=== PATIENT | female | born 1955 | race Caucasian/White ===

== ENCOUNTER 2016-11-17 06:55 | Day surgery (SDC) | payer OTHER ==
--- NOTE | ~2016-11-17 | EGD ---
EGD REPORT [facility] [address] [place]. [address] NAME: CHANELL BROWN : 57 STATUS : [facility] [place] PAT#: [id number] AGE: 61 ADM/REG DATE : 11/17/16 MR#: [id number] REPORT SERV DATE: 11/17/16 DICTATED BY: DEJA ABRAHAM DATE: 11/17/16 REPORT STATUS : Draft TRANSCRIBED BY: [facility] DATE: 11/17/16 End[facility] Center Patient Name: Chanell Brown Date of : 1955 Attending MD: DEJA ABRAHAM MD Procedure Date No Time: 11/17/2016 Procedure: Colonoscopy Indications: Heme positive stool, Last colonoscopy: February 2009, History of ischemic colitis Referring MD: ELMIRA SADLER MD Medicines: Propofol per Anesthesia Complications: No immediate complications. Estimated blood loss: None. Procedure: Pre-Anesthesia Assessment: - After reviewing the risks and benefits, the patient was deemed in satisfactory condition to undergo the procedure. - Prior to the procedure, a History and Physical was performed, and patient medications and allergies were reviewed. The patient's tolerance of previous anesthesia was also reviewed. The risks and benefits of the procedure and the sedation options and risks were discussed with the patient. All questions were answered, and informed consent was obtained. Prior Anticoagulants: The patient has taken Plavix (clopidogrel), last dose was 7 days prior to procedure. ASA Grade Assessment: III - A patient with severe systemic disease. After reviewing the risks and benefits, the patient was deemed in satisfactory condition to undergo the procedure. After I obtained informed consent, the scope was passed under direct vision. Throughout the procedure, the patient's blood pressure, pulse, and oxygen saturations were monitored continuously. The CF [id number] was introduced through the anus and advanced to the cecum, identified by appendiceal orifice and ileocecal valve. The colonoscopy was performed without difficulty. The ileocecal valve and appendiceal orifice were photographed. The patient tolerated the procedure well. The quality of the bowel preparation was adequate. The bowel preparation used was SUPREP. Scope withdrawal time was greater than 6 minutes. Findings: The perianal and digital rectal examinations were normal. Pertinent negatives include normal sphincter tone. Non-bleeding internal hemorrhoids were found during retroflexion and EGD REPORT [address] [address] NAME: CHANELL BROWN : [birth year] STATUS : REG [facility]#: [id number] AGE: 61 ADM/REG DATE : 11/17/16 MR#: [id number] REPORT SERV DATE: 11/17/16 DICTATED BY: DEJA ABRAHAM DATE: 11/17/16 REPORT STATUS : Draft TRANSCRIBED BY: [facility] DATE: 11/17/16 were medium-sized and Grade I (internal hemorrhoids that do not prolapse). A single large-mouthed diverticulum was found in the proximal ascending colon. There was no evidence of diverticular bleeding. A sessile polyp was found in the transverse colon. The polyp was 4 mm in size. The polyp was removed with a cold snare. Resection and retrieval were complete. Estimated blood loss: none. The exam was otherwise without abnormality. Impression: - Non-bleeding internal hemorrhoids. - Diverticulosis in the proximal ascending colon. There was no evidence of diverticular bleeding. - One 4 mm polyp in the transverse colon. Resected and retrieved. - The examination was otherwise normal. Recommendation: - Discharge patient to home (ambulatory). - High fiber diet indefinitely. - Continue present medications. - Resume Plavix (clopidogrel) at prior dose tomorrow. - Await pathology results. - Repeat colonoscopy in 5 years for surveillance. - Patient has a contact number available for emergencies. The signs and symptoms of potential delayed complications were discussed with the patient. Return to normal activities tomorrow. Written discharge instructions were provided to the patient. Procedure Code(s): --- Professional --- 91103, Colonoscopy, flexible, proximal to splenic flexure; with removal of tumor(s), polyp(s), or other lesion(s) by snare technique Diagnosis Code(s): --- Professional --- K64.0, First degree hemorrhoids K57.30, Diverticulosis of large intestine without perforation or abscess without bleeding D12.3, Benign neoplasm of transverse colon R19.5, Other fecal abnormalities CPT copyright 2013 [employer]. All rights reserved. The codes documented in this report are preliminary and upon stone grader review may be revised to meet current compliance requirements. EGD REPORT [facility] [address] [place]. [address] NAME: CHANELL BROWN : [birth year] STATUS : [facility] [place] [facility] PAT#: [id number] AGE: 61 ADM/REG DATE : 11/17/16 MR#: [id number] REPORT SERV DATE: 11/17/16 DICTATED BY: DEJA ABRAHAM DATE: 11/17/16 REPORT STATUS : Draft TRANSCRIBED BY: [employer] DATE: 11/17/16 DEJA ABRAHAM MD 11/17/2016 9:06 AM This report has been signed electronically. Number of Addenda: 0 Note Initiated On: 11/17/2016 8:37 AM Scope Withdrawal Time 0 hours 6 minutes 20 seconds [address] [place] [address]
[~2016-11-17 06:55] MED LIST: ADVAIR250 INH; ASAB PO; ATV.5 PO; AVAP150 PO; BUSPAR5 PO; COMBIVENT INH; COMBIVENT RESPIM4 GM INH; DEPAKOTEER PO; LEVOTHYROXIN50 MCG PO; LIPITOR20 PO; LOP25 PO; NEUR300 PO; PLAVIX PO; POLY-IRON; PREDNISONE; PRIN10 PO; SYMBICORT 80/4.1 INH INH; VERAPAMIL ER; VERELAN180 MG PO; WELLXL150 PO; ZITH250 PO
== END 2016-11-17 23:59 | disposition home or self-care (01) ==
LOC: DMU 06:55
PROVIDERS: Internal Medicine Gastroenterology
PROC: 0DBL8ZZ Excision of Transverse Colon, Via Natural or Artificial Opening Endoscopic (ICD-10-PCS; principal; 2016-11-17 08:30)
DX: D12.3 Benign neoplasm of transverse colon (principal); K64.0 First degree hemorrhoids; K57.30 Diverticulosis of large intestine without perforation or abscess without bleeding; R19.5 Other fecal abnormalities; I25.10 Atherosclerotic heart disease of native coronary artery without angina pectoris; E03.9 Hypothyroidism, unspecified; E66.9 Obesity, unspecified; J44.9 Chronic obstructive pulmonary disease, unspecified; G47.33 Obstructive sleep apnea (adult) (pediatric); Z99.81 Dependence on supplemental oxygen; Z86.73 Personal history of transient ischemic attack (TIA), and cerebral infarction without residual deficits; Z79.899 Other long term (current) drug therapy; Z79.82 Long term (current) use of aspirin; Z98.890 Other specified postprocedural states; F41.9 Anxiety disorder, unspecified; F32.9 Major depressive disorder, single episode, unspecified; Z90.49 Acquired absence of other specified parts of digestive tract; Z90.89 Acquired absence of other organs; I11.0 Hypertensive heart disease with heart failure; I50.20 Unspecified systolic (congestive) heart failure; F17.210 Nicotine dependence, cigarettes, uncomplicated
CPT/HCPCS: 88305; 94640

== ENCOUNTER 2016-12-15 22:53 | Inpatient (IN) | payer OTHER ==
--- NOTE | ~2016-12-15 | DS ---
Discharge Summary [facility] [address] [place]. [address] NAME: CHANELL SHUKLA : 57 STATUS : ADM [facility] PAT#: [id number] AGE: 61 ADM/REG DATE : 12/15/16 MR#: [id number] REPORT SERV DATE: 12/18/16 DICTATED BY: BRONSON CHOI DATE: 12/18/16 REPORT STATUS : Draft TRANSCRIBED BY: MODL DATE: 12/18/16 ADMISSION DATE: 12/15/2016 DISCHARGE DATE: 12/18/2016 FINAL HOSPITAL DIAGNOSES: 1. Encephalopathy, confusion, and lethargy, felt secondary to history of EtOH and medication use. 2. History of seizure disorder. 3. History of chronic obstructive pulmonary disease. 4. History of obstructive sleep apnea. 5. History of systolic congestive heart failure. 6. History of hypothyroidism. 7. Hypertension. CONSULTATIONS: Dr. Read, Psychiatry. PROCEDURES: 1. Electroencephalogram done on 12/16/2016 showing normal awake electroencephalogram, somewhat compromised by movement artifact. Beta activity may be a normal variant or drug effect. If seizures are strongly suspected, repeat tracing with sleep deprivation may be considered. 2. CT of the brain done on 12/15/2016 showing atrophy. No acute infarct or bleed. CURRENT PHYSICAL FINDINGS AND HISTORY OF PRESENT ILLNESS: Please see dictated H and P by Dr. Gordon. In brief, the patient is a 61-year-old female with above medical history, presented with confusion and lethargy, felt secondary to history of EtOH and medication use at home. Vital signs at time of presentation, BP was 218/84, however, subsequent blood pressures were in the mid 150 range systolic. No fever at admission or during her hospital stay. Heart rates were consistently in the 60s to 70s. Sats were in mid 90s on room air. Lab work, presenting BMP showed some hyponatremia of 126. Subsequently through her hospital stay, she partially corrected to 133. BUN and creatinine were normal. Initial total bilirubin was 1.3, slightly elevated. AST and ALT were 60 and 48 respectively. Folate and B12 levels were checked with a folate of 5.3 and a B12 of 584. TSH was slightly high at 5.95, but no dosage adjustments to her chronic Synthroid were done. Depakote level was therapeutic at 92.2 and her alcohol level was less than 10. Her ammonia level was 28. Initially, her white count was 4.6 on presentation. H and H were stable at approximately 13 hemoglobin. Her platelet count was low on presentation at 79. She remained in mid 70s through her hospital stay. The only previous numbers available to us here were 160s back in 2013. INR was 1.4. Urinalysis was unremarkable. Urine chemistry was positive for benzodiazepines, otherwise unremarkable. HOSPITAL COURSE: The patient was admitted with above history and symptoms and was initially admitted by Dr. Gordon on the evening of 12/16/2016. I took over her care on the morning of 12/16/2016. The patient seemed to be improved at that time. Also, she had the availability Discharge Summary [address] [place]. [address] NAME: CHANELL SHUKLA : 57 STATUS : ADM [facility] PAT#: [id number] AGE: 61 ADM/REG DATE : 12/15/16 MR#: [id number] REPORT SERV DATE: 12/18/16 DICTATED BY: BRONSON CHOI DATE: 12/18/16 REPORT STATUS : Draft TRANSCRIBED BY: TREVIN DATE: 12/18/16 of her supportive and well-informed family members for additional history. The patient's last drink had been on 12/09/2016 prior to admission and family felt comfortable that that was accurate. She had apparently been placed on some benzodiazepines either for her anxiety or in anticipation of the drinking cessation. The patient did not really give a strong history of any DTs prior. Her sodium gradually corrected without intervention and it was not felt to be significantly contributory to her symptoms, and ammonia level was checked, which again was 28. It was elected to proceed with an EEG just to make sure that she did not have any occult seizures either from her chronic seizure history or the EtOH, although it had been almost a week since her last drink. This was not strongly positive. She was placed on her home medications. She did require initially some additional medication to titrate her blood pressure down, but otherwise did quite well. Because it was felt that she may be inadvertently taking her medications inappropriately either from the auto-refills from [employer] or during her alcohol use and it was also felt she may be using alcohol or medications to cope with her anxiety, Dr. Read did consult and recommended discontinuing her Wellbutrin and titrating her Ativan to a lowest dose if possible and continue her Lexapro. She did receive some Librium p.r.n. here for some anxiety, although there was again no true documented DT. She was never confused, disoriented, or combative. She had no significant difficulties with any bleeding complications. Her vitamin levels were checked and she was started on a multivitamin. She progressed well during her hospital stay without any other real issues or problems. The family was kept well informed and they are well involved in her care. Pending a PT evaluation today to make sure that she is stable and not a fall risk with her drinking history and recent situation. Pending the PT evaluation, she will be discharged later today. DISPOSITION: She will be discharged home. Family has already secured her a followup appointment with her PCP, Dr. Orona, tomorrow. MEDICATIONS: Baby aspirin 81, Lipitor 10, Plavix 75, Depakote 500 b.i.d., Lexapro 10, Synthroid 75 on Thursday and Thursday and 50 the remainder of the week, Prinivil 10, metoprolol 25 b.i.d., Aldactone 25, Combivent inhaler, Symbicort inhaler two puffs b.i.d. 80/4.5, vitamin D3 1000 daily, Ativan 0.5 at bedtime p.r.n., iron tablet and a multivitamin one per day. I did not adjust her Synthroid dose based on her TSH, we will defer to PCP. We will defer to PCP following of her platelet count. She was taken off any subcu DVT prophylaxis here when her platelet counts were noted and no baseline for followup. The patient will return for any complications or problems. At this point, she seems low probability for any withdrawals as she has been greater than a week from her last drink and her medications appear straightened out at this time. DICTATED BY: Imer Hanna/TREVIN Discharge Summary [place] [address] [place]. [address] NAME: CHANELL SHUKLA JUNIE : 57 STATUS : ADM [facility] PAT#: [id number] AGE: 61 ADM/REG DATE : 12/15/16 MR#: [id number] REPORT SERV DATE: 12/18/16 DICTATED BY: BRONSON CHOI DATE: 12/18/16 REPORT STATUS : Draft TRANSCRIBED BY: MODL DATE: 12/18/16 Bronson Choi M.D. / [id number] CC: Imer Hanna M.D.
--- NOTE | ~2016-12-15 | HP ---
History And Physical [place] [address] [facility] [place]. [address] NAME: CHANELL SHUKLA : 57 STATUS : ADM [facility] PAT#: [id number] AGE: 61 ADM/REG DATE : 12/15/16 MR#: [id number] REPORT SERV DATE: 12/16/16 DICTATED BY: MARCELA WEI DATE: 12/16/16 REPORT STATUS : Draft TRANSCRIBED BY: MODL DATE: 12/16/16 DATE OF ADMISSION: 12/15/2016 CHIEF COMPLAINT: A 61-year-old female presenting with chronic benzodiazepine use and now alcohol abuse with evidence of encephalopathy and lethargy. HISTORY OF PRESENTING ILLNESS: The patient's history was obtained through careful interview with the patient and two sisters, coupled with review of [facility]. Apparently for "a couple of weeks," the patient has become increasingly confused, disoriented, and lethargic, but yesterday, the day leading up to admission, her confusion had really hit a peak. The patient states "my head just does not feel right" and she has been incoherent, lethargic, and disoriented. There has been concern that she gets confused about her medicine and she admits this to her family, but she has also had increasing anxiety, crying spells, and described depression (but no suicidal ideation). There was concern that she may be taking her antianxiety medications too often and extra doses of them. She has chronic foot pain, but at this time, she is unable to describe a precise quality or severity of the pain. She has chronic lymphedema. No shortness of breath, no chest pain. No nausea or vomiting. No diarrhea. No seizure activity. No loss of bowel or bladder continence. REVIEW OF SYSTEMS: Otherwise, a complete review of systems was obtained and was negative including a negative review of systems for stroke. PAST MEDICAL HISTORY: 1. Stroke in 2013 involving the left cerebellum and the right parietooccipital lobe. 2. Negative catheterization of the heart in 2013, but with elevated troponin at that time, followed by Dr. Hull. 3. Systolic congestive heart failure. Ejection fraction 45% by catheterization of the heart 40% by echocardiogram in 2013. 4. Obstructive sleep apnea, on CPAP. 5. COPD. 6. Anxiety and depression. 7. Polysubstance abuse. 8. Seizure disorder, on Depakote. 9. Hypothyroidism. 10.Elevated cholesterol. 11.Hypertension. 12.Colon polyps, seen by Dr. Garrison. 13.Pseudomonas bronchitis. History And Physical [place] [address] [place]. [address] NAME: CHANELL SHUKLA : 57 STATUS : ADM [facility] PAT#: [id number] AGE: 61 ADM/REG DATE : 12/15/16 MR#: [id number] REPORT SERV DATE: 12/16/16 DICTATED BY: MARCELA WEI DATE: 12/16/16 REPORT STATUS : Draft TRANSCRIBED BY: TREVIN DATE: 12/16/16 PAST SURGICAL HISTORY: 1. Right foot surgery. 2. Cholecystectomy. ALLERGIES: NO KNOWN DRUG ALLERGIES. SOCIAL HISTORY: Lives in [place], [place]. Lives alone. No children. Had quit alcohol for a number of years, but had resumed heavy drinking recently. The patient smokes cigarettes. FAMILY HISTORY: No stroke. No heart disease. Sisters are healthy. CURRENT MEDICATIONS: Include Lipitor 10 mg p.o. daily, Symbicort two puffs inhaled twice a day, Plavix 75 mg p.o. daily, Depakote 500 mg p.o. b.i.d., Combivent, lisinopril 10 mg p.o. daily, Ativan p.r.n., Lopressor 25 mg p.o. b.i.d., Aldactone 25 mg p.o. daily, aspirin, vitamin D, Wellbutrin, Synthroid, iron supplement, and Lexapro. PHYSICAL EXAMINATION: VITAL SIGNS: Temperature 97.8, pulse 83, blood pressure 218/84, respiratory rate 18, and O2 saturation 96% on room air. GENERAL: An ill-appearing female, very confused, lethargic, poorly responsive, but in no evidence of acute distress. HEENT: Pupils equal, round, and reactive to light. No conjunctival pallor. No scleral icterus. Nares are patent. Oropharynx is clear of obstruction. Moist mucous membranes. NECK: Trachea midline. No thyromegaly. LYMPH: No cervical lymphadenopathy. No supraclavicular lymphadenopathy. RESPIRATORY: The patient has scattered expiratory wheezes, prolonged expiratory phase. No rhonchi. No rales. Unlabored respiratory effort. CARDIOVASCULAR: Regular rate and rhythm. No murmurs, rubs, or gallops. No extremity edema is appreciated. ABDOMEN: Soft, nontender, nondistended. Normal bowel sounds auscultated throughout. No hepatosplenomegaly. DERMATOLOGICAL: Warm and dry extremities. No pallor. No cyanosis. PSYCHIATRIC: A very flat affect. Irritable mood. She admits to being anxious, depressed. No suicidal ideation. She is lethargic, but arousable to vocal stimuli. She is poorly oriented to details of time and recent history, but is oriented to location. LABORATORY DATA: White blood cell count 4.6, hemoglobin 13, hematocrit 38, platelets 79. Sodium 126, potassium 4.6, chloride 90, bicarb 31, BUN 11, creatinine 0.88, glucose 77, troponin negative. INR 1.3. Liver enzymes within normal limits. Urine drug screen positive for benzos. ABG demonstrates pH 7.42, a PaCO2 of 42, a PaO2 of 78, and bicarb 27. Urinalysis, negative for infection. STUDIES: 1. Chest x-ray by my own evaluation shows no acute cardiopulmonary process. 2. EKG by my own evaluation shows sinus rhythm. No major abnormalities. History And Physical [address] [address] NAME: CHANELL SHUKLA : 57 STATUS : ADM [facility] PAT#: [id number] AGE: 61 ADM/REG DATE : 12/15/16 MR#: [id number] REPORT SERV DATE: 12/16/16 DICTATED BY: MARCELA WEI DATE: 12/16/16 REPORT STATUS : Draft TRANSCRIBED BY: [employer] DATE: 12/16/[address] scan of the brain without contrast shows no acute intracranial process. ASSESSMENT AND PLAN: 1. Polysubstance abuse with resumed alcohol abuse and benzodiazepine use with possible overuse. We will monitor closely. 2. Encephalopathy. Negative CT scan of the brain. I believe that her confusion is likely from overmedication and alcohol abuse. 3. Seizure disorder. Check Depakote level. Check an EEG. 4. Anxiety and depression. Obtain a Psychiatric consult with Dr. Read. Maybe the patient needs to consider options to come off benzodiazepines? 5. Late effects of stroke. 6. Obstructive sleep apnea. Continue BiPAP nightly. Place on continuous O2 saturation monitor. 7. Chronic obstructive pulmonary disease. Counseled tobacco abstinence. Place on duo nebulizers. 8. Chronic systolic congestive heart failure. Ejection fraction 40% to 45%. Monitor volume status closely. 9. Hyponatremia. Baseline sodium of 131, now dropped to 126. We will place on IV fluids and monitor closely. Possible alcohol-related drop in sodium? 10.Low platelets, possibly related to toxicity from alcohol abuse. We will monitor platelet count closely. KPL/MODL Marcela Wei M.D. / [id number] CC: Imer Hanna M.D. James Hoback Jr., M.D. Hisham F. Qutob, MD
--- NOTE | ~2016-12-15 | EEG ---
Electroencephalogram [place] [id number] [facility] [place]. [address] NAME: CHANELL SHUKLA : 57 STATUS : ADM [facility] PAT#: [id number] AGE: 61 ADM/REG DATE : 12/15/16 MR#: [id number] REPORT SERV DATE: 12/16/16 DICTATED BY: SANGEETHA BENDER DATE: 12/16/16 REPORT STATUS : Draft TRANSCRIBED BY: TREVIN DATE: 12/16/16 EEG NUMBER: [id number]. HOURS OF SLEEP: 8 to 10. SAFE AND VAULT INSTALLER: Laith Neely INTRODUCTION: This is an 18-channel EEG recorded with scalp electrodes in the International 10-20 system. The patient is a 61-year-old female with an episode of confusion past seizure two years prior. CURRENT MEDICATIONS: Include magnesium, Lexapro, Plavix, Prinivil, Aldactone, Lipitor, Lopressor, Depakote, Dulera, and DuoNeb. DESCRIPTION: The background rhythm while awake consisted of a mixture of frequencies at times in the 10 Hz range; however, faster and slower frequencies were intermixed. There was a large amount of beta activity present diffusely with movement artifact present throughout most of the EEG. The activity seen was symmetric. Sleep was not recorded. On the EKG lead, a regular rhythm was recorded. IMPRESSION: THIS EEG IS NORMAL IN THE AWAKE STATE. THE EEG IS SOMEWHAT COMPROMISED BY MOVEMENT ARTIFACT. THE BETA ACTIVITY MAY BE A NORMAL VARIANT OR DRUG EFFECT. IF SEIZURES ARE STRONGLY SUSPECTED, A REPEAT TRACING WITH SLEEP DEPRIVATION MAY BE CONSIDERED. LIAM/TREVIN Sangeetha Bender M.D. / [id number] CC: Imer Hanna M.D.
--- NOTE | ~2016-12-15 | CN ---
Consultation Report [facility] [address] [place]. [address] NAME: CHANELL SHUKLA : 57 STATUS : ADM [facility] PAT#: [id number] AGE: 61 ADM/REG DATE : 12/15/16 MR#: [id number] REPORT SERV DATE: 12/16/16 DICTATED BY: HUA RAMOS DATE: 12/16/16 REPORT STATUS : Draft TRANSCRIBED BY: MODL DATE: 12/16/16 PSYCHIATRIC CONSULTATION DATE OF CONSULTATION: 12/16/2016 I reviewed this patient's current and old medical records. I discussed the patient's history with her sister, Yoanna. HISTORY OF PRESENT ILLNESS: She was admitted with confusion and lethargy which was particularly severe for about a day prior to admission. The family reported that she had been acting somewhat confused for a few weeks prior to that. PAST PSYCHIATRIC HISTORY: She had small strokes in her left cerebellum and right parieto- occipital cortex in 2013. She was diagnosed with seizure disorder and was prescribed Depakote. Her current home medication list included Depakote 500 mg b.i.d., Ativan 0.5 mg q.i.d. p.r.n., Wellbutrin XL 150 mg daily, and Lexapro 10 mg daily. She has had polysubstance abuse on and off throughout her adult life. She has attended drug rehabilitation centers. The most recent one was at [facility] some years ago. She now reports that she was drinking a pint or less of whiskey daily in recent months. She stopped drinking about a week ago, at which time, Dr. Orona, her PCP, prescribed the Ativan to help her with withdrawal symptoms. It was during this time that she became even more confused. The patient also reports that she has experienced unprovoked crying episodes for a number of months or perhaps years. She said she does not feel significantly depressed during these episodes. She said they just come out of the blue. She has never experienced manic symptoms. 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 She has worked for this company for about 20 years and she has never experienced work-related problems. She is single. She lives alone. She keeps in close contact with her two sisters. FAMILY HISTORY: No psychiatric illness. MENTAL STATUS: She was awake and alert. She was pleasant and cooperative in attitude. Her mood was mildly anxious. Her affect was full and appropriate. Her thinking was logical. She had no delusions. She had no hallucinations. She was oriented to "[facility]" - "12/16/2016." DIAGNOSES: 1. Alcohol dependence and withdrawal. 2. Polysubstance abuse, in remission. 3. Depressive disorder, not otherwise specified, with a possible element of pseudobulbar affect. RECOMMENDATIONS: We discussed the need for maintaining sobriety. She feels she will be able Consultation Report [facility] [address] [place]. [address] NAME: CHANELL SHUKLA : 57 STATUS : ADM [facility] PAT#: [id number] AGE: 61 ADM/REG DATE : 12/15/16 MR#: [id number] REPORT SERV DATE: 12/16/16 DICTATED BY: HUA RAMOS. DATE: 12/16/16 REPORT STATUS : Draft TRANSCRIBED BY: TREVIN DATE: 12/16/16 to accomplish this without further professional help. I will continue her Lexapro 10 mg daily. I will discontinue Wellbutrin. I will see her for a followup visit tomorrow. LENA/TREVIN Hua Ramos M.D. / [id number] CC: Imer Hanna M.D.
[2016-12-16 00:34] LABS: BE (BASE EXCESS) 2.6 MEQ/L (0 +/- 2.5); HCO3 (ACTUAL BICARBONATE) 27.2 MEQ/L (23-27); INSTRUMENT SERIAL # 8087; PCO2 (CO2 TENSION) 42 MMHG (35-45); PO2 (O2 TENSION) 78 MMHG (79-93); SAMPLE Arterial; pH 7.43 (7.37-7.43)
[2016-12-16 00:58] LABS: BASOPHILS 0 %; EOSINOPHILS 2.8 %; EOSINOPHILS ABSOLUTE 0.13 10/3/uL (0.0-0.53); IMMATURE GRANULOCYTES 0.2 %; IMMATURE GRANULOCYTES ABSOLUTE 0.01 10/3/uL (0.0-0.11); LYMPHOCYTES ABSOLUTE 1.33 10/3/uL (0.67-4.30); MEAN PLATELET VOLUME 11.3 fL (9.2-13.0); MONOCYTES 9.6 %; MONOCYTES ABSOLUTE 0.44 10/3/uL (0.21-1.20); NEUTROPHILS 58.4 %; NEUTROPHILS ABSOLUTE 2.67 10/3/uL (2.02-8.40); RBC DISTRIBUTION WIDTH 12.6 % (12.0-16.0); WHITE BLOOD CELLS 4.6 10/3/uL (4.5-10.5)
[2016-12-16 01:00] LABS: HEMATOCRIT 37.5 % (36.0-48.0); MEAN CORPUS HGB CONC 34.7 g/dL (32.0-36.0); MEAN CORPUSCULAR HEMOGLOB 34.2 pg (26.0-34.0); MEAN CORPUSCULAR VOLUME 98.7 fL (80-100); PLATELET COUNT 79 10/3/uL (150-400)
[2016-12-16 01:01] LABS: MANUAL DIFF NO %
[2016-12-16 01:14] LABS: ACETAMINOPHEN LEVEL (TYLENOL) < 2.0 MCG/ML (10.0-20.0); ALCOHOL < 10 MG/DL (0); SALICYLATE < 1.7 MG/DL (-)
[2016-12-16 01:16] LABS: ALBUMIN 3.3 G/DL (3.5-5.0); ALKALINE PHOSPHATASE 71 U/L (45-117); BUN (BLOOD UREA NITROGEN) 11 MG/DL (6-23); CALCIUM, SERUM 8.7 MG/DL (8.5-10.4); CHLORIDE, SERUM 90 MMOL/L (96-112); CO2 (CARBON DIOXIDE) 31 MMOL/L (24-34); CREATININE 0.88 MG/DL (0.55-1.02); GFR AFRICAN AMERICAN 83 ML/MIN (>=60); GFR NON AFRICAN AMERICAN 71 ML/MIN (>=60); GLUCOSE, SERUM 77 MG/DL (60-99); POTASSIUM, SERUM 4.6 MMOL/L (3.5-5.3); SGOT(AST) 60 U/L (5-40); SGPT(ALT) 48 U/L (5-65); SODIUM, SERUM 126 MMOL/L (135-148); TOTAL PROTEIN 6.7 G/DL (6.0-8.5); TROPONIN I <0.02 NG/ML (<0.05)
[2016-12-16 01:19] LABS: GLOBULIN 3.4 G/DL (2.5-4.1); TOTAL BILIRUBIN 1.1 MG/DL (0-1.2)
[2016-12-16 01:21] LABS: PLATELET ESTIMATE DEC (ADEQUATE); RBC MORPHOLOGY NORM (NORMAL)
[2016-12-16 01:24] LABS: ASCORBIC ACID (UR NOT ORDER) NEG (NEG); BILIRUBIN, URINE NEGATIVE (NEG); ER URINALYSIS TAT 0 Hrs 00 Mins; KETONE, URINE TRACE MG/DL (NEG); LEUKOCYTE ESTERASE(NOT OR NEG (NEG); NITRITE (URINE) NEG (NEG); WBC (NOT ORDERED) (RFLEX) 1 (0-5)
[2016-12-16 01:40] LABS: INTERNATIONAL NORMAL RATI 1.3 UNITS (-); PARTIAL THROMBO TIME 27.5 SEC (22.5-37.2); PROTIME (NOT ORD) 16.5 SEC (12.0-14.5)
[2016-12-16 01:42] LABS: AMPHETAMINES (NOT ORD) NEG (NEG); BARBITURATES (NOT ORDERED NEG (NEG); BENZODIAZEPINES (NOT ORD) POS (NEG); CANNABINOIDS (THC) NEG (NEG); COCAINE (NOT ORDERED) NEG (NEG); OPIATES NEG (NEG); PHENCYCLIDINE(PCP) NEG (NEG); TRICYCLICS NEG (NEG)
[2016-12-16] MEDS ORDERED: ASAB PO (03:14)
[2016-12-16] MEDS ORDERED: SYMBICORT 80/4.1 INH INH (03:18)
[2016-12-16] MEDS ORDERED: LOP25 PO (03:18)
[2016-12-16] MEDS ORDERED: ATV.5 PO (03:19)
[2016-12-16] MEDS ORDERED: VITAMIN D31000 UNIT PO (03:19)
[2016-12-16] MEDS ORDERED: LIPITOR10 PO (03:20)
[2016-12-16] MEDS ORDERED: COMBIVENT RESPIM4 GM INH (03:22)
[2016-12-16] MEDS ORDERED: PRIN10 PO (03:22)
[2016-12-16] MEDS ORDERED: DEPAKOT500 PO (03:22)
[2016-12-16] MEDS ORDERED: WELLXL150 PO (03:22)
[2016-12-16] MEDS ORDERED: PLAVIX PO (03:23)
[2016-12-16] MEDS ORDERED: SYNTHROID (03:24)
[2016-12-16] MEDS ORDERED: POLY-IRON PO (03:25)
[2016-12-16] MEDS ORDERED: SPIRO25 PO (03:25)
[2016-12-16] MEDS ORDERED: LEXAPRO10 PO (03:27)
[2016-12-16] MEDS ORDERED: *UNABLE1 (03:28)
[2016-12-16 12:10] LABS: BASOPHILS 0.3 %; BASOPHILS ABSOLUTE 0.01 10/3/uL (0.0-0.16); EOSINOPHILS 3.3 %; HEMATOCRIT 35.7 % (36.0-48.0); HEMOGLOBIN 12.2 g/dL (12.0-16.0); IMMATURE GRANULOCYTES 0.3 %; IMMATURE GRANULOCYTES ABSOLUTE 0.01 10/3/uL (0.0-0.11); LYMPHOCYTES 26.8 %; MEAN CORPUS HGB CONC 34.2 g/dL (32.0-36.0); MEAN CORPUSCULAR HEMOGLOB 33.4 pg (26.0-34.0); MEAN CORPUSCULAR VOLUME 97.8 fL (80-100); MEAN PLATELET VOLUME 11.6 fL (9.2-13.0); MONOCYTES 8.4 %; MONOCYTES ABSOLUTE 0.25 10/3/uL (0.21-1.20); NEUTROPHILS 60.9 %; NEUTROPHILS ABSOLUTE 1.82 10/3/uL (2.02-8.40); PLATELET COUNT 74 10/3/uL (150-400); RBC DISTRIBUTION WIDTH 12.7 % (12.0-16.0); RED CELL COUNT 3.65 10/6/uL (4.0-5.6)
[2016-12-16 12:11] LABS: MANUAL DIFF NO %
[2016-12-16 12:19] LABS: INTERNATIONAL NORMAL RATI 1.4 UNITS (-); PARTIAL THROMBO TIME 31.5 SEC (22.5-37.2); PROTIME (NOT ORD) 16.8 SEC (12.0-14.5)
[2016-12-16 12:32] LABS: A/G RATIO 0.9 (0.7-1.9); ALBUMIN 2.9 G/DL (3.5-5.0); ALKALINE PHOSPHATASE 69 U/L (45-117); BUN (BLOOD UREA NITROGEN) 8 MG/DL (6-23); CALCIUM, SERUM 8.4 MG/DL (8.5-10.4); CHLORIDE, SERUM 92 MMOL/L (96-112); CO2 (CARBON DIOXIDE) 29 MMOL/L (24-34); CREATININE 0.73 MG/DL (0.55-1.02); GFR AFRICAN AMERICAN 104 ML/MIN (>=60); GFR NON AFRICAN AMERICAN 90 ML/MIN (>=60); GLOBULIN 3.1 G/DL (2.5-4.1); GLUCOSE, SERUM 75 MG/DL (60-99); PHOSPHORUS, SERUM 2.5 MG/DL (2.5-4.5); POTASSIUM, SERUM 4.4 MMOL/L (3.5-5.3); SGOT(AST) 58 U/L (5-40); SGPT(ALT) 42 U/L (5-65); SODIUM, SERUM 127 MMOL/L (135-148); TOTAL BILIRUBIN 1.3 MG/DL (0-1.2); TROPONIN I <0.02 NG/ML (<0.05)
[2016-12-16 12:49] LABS: DEPAKENE (VALPROIC ACID) 92.2 MCG/ML (50.0-100.0)
[2016-12-16] MEDS ORDERED: SYN075 PO (14:48)
[2016-12-16] MEDS ORDERED: LEVOTHYROXIN50 MCG PO (14:49)
[2016-12-16] MEDS ORDERED: ALTOREX150 MG PO (14:52)
[2016-12-17 04:55] LABS: BASOPHILS 0.3 %; BASOPHILS ABSOLUTE 0.01 10/3/uL (0.0-0.16); EOSINOPHILS ABSOLUTE 0.14 10/3/uL (0.0-0.53); HEMATOCRIT 35.5 % (36.0-48.0); HEMOGLOBIN 12.4 g/dL (12.0-16.0); IMMATURE GRANULOCYTES 0.3 %; IMMATURE GRANULOCYTES ABSOLUTE 0.01 10/3/uL (0.0-0.11); LYMPHOCYTES 36.5 %; LYMPHOCYTES ABSOLUTE 1.27 10/3/uL (0.67-4.30); MEAN CORPUS HGB CONC 34.9 g/dL (32.0-36.0); MEAN CORPUSCULAR HEMOGLOB 34.4 pg (26.0-34.0); MEAN CORPUSCULAR VOLUME 98.6 fL (80-100); MEAN PLATELET VOLUME 11.3 fL (9.2-13.0); MONOCYTES 10.6 %; MONOCYTES ABSOLUTE 0.37 10/3/uL (0.21-1.20); NEUTROPHILS 48.3 %; NEUTROPHILS ABSOLUTE 1.68 10/3/uL (2.02-8.40); PLATELET COUNT 67 10/3/uL (150-400); RBC DISTRIBUTION WIDTH 12.6 % (12.0-16.0); WHITE BLOOD CELLS 3.5 10/3/uL (4.5-10.5)
[2016-12-17 04:56] LABS: MANUAL DIFF NO %
[2016-12-17 05:12] LABS: BUN (BLOOD UREA NITROGEN) 7 MG/DL (6-23); CALCIUM, SERUM 8.3 MG/DL (8.5-10.4); CHLORIDE, SERUM 95 MMOL/L (96-112); CO2 (CARBON DIOXIDE) 28 MMOL/L (24-34); CREATININE 0.79 MG/DL (0.55-1.02); GFR AFRICAN AMERICAN 94 ML/MIN (>=60); GFR NON AFRICAN AMERICAN 81 ML/MIN (>=60); GLUCOSE, SERUM 68 MG/DL (60-99); POTASSIUM, SERUM 4.2 MMOL/L (3.5-5.3); SODIUM, SERUM 129 MMOL/L (135-148)
[2016-12-17 05:29] LABS: PLATELET ESTIMATE DEC (ADEQUATE)
[2016-12-17 05:30] LABS: RBC MORPHOLOGY NORM (NORMAL)
[2016-12-17 14:16] LABS: FOLATE 5.3 NG/ML (>5.2)
[2016-12-18 05:01] LABS: BASOPHILS 0.3 %; BASOPHILS ABSOLUTE 0.01 10/3/uL (0.0-0.16); EOSINOPHILS 3.4 %; EOSINOPHILS ABSOLUTE 0.12 10/3/uL (0.0-0.53); HEMATOCRIT 36.6 % (36.0-48.0); HEMOGLOBIN 12.8 g/dL (12.0-16.0); IMMATURE GRANULOCYTES 0.6 %; IMMATURE GRANULOCYTES ABSOLUTE 0.02 10/3/uL (0.0-0.11); MEAN CORPUSCULAR HEMOGLOB 34.2 pg (26.0-34.0); MEAN CORPUSCULAR VOLUME 97.9 fL (80-100); MEAN PLATELET VOLUME 11.4 fL (9.2-13.0); MONOCYTES 14.6 %; MONOCYTES ABSOLUTE 0.52 10/3/uL (0.21-1.20); NEUTROPHILS 50.1 %; NEUTROPHILS ABSOLUTE 1.78 10/3/uL (2.02-8.40); PLATELET COUNT 73 10/3/uL (150-400); RBC DISTRIBUTION WIDTH 12.9 % (12.0-16.0); RED CELL COUNT 3.74 10/6/uL (4.0-5.6); WHITE BLOOD CELLS 3.6 10/3/uL (4.5-10.5)
[2016-12-18 05:05] LABS: MANUAL DIFF NO %
[2016-12-18 05:12] LABS: BUN (BLOOD UREA NITROGEN) 8 MG/DL (6-23); CALCIUM, SERUM 8.7 MG/DL (8.5-10.4); CHLORIDE, SERUM 98 MMOL/L (96-112); CO2 (CARBON DIOXIDE) 27 MMOL/L (24-34); CREATININE 0.73 MG/DL (0.55-1.02); GFR AFRICAN AMERICAN 104 ML/MIN (>=60); GFR NON AFRICAN AMERICAN 90 ML/MIN (>=60); GLUCOSE, SERUM 72 MG/DL (60-99); POTASSIUM, SERUM 3.9 MMOL/L (3.5-5.3); SODIUM, SERUM 133 MMOL/L (135-148)
[2016-12-18 05:22] LABS: HYPOCHROMIA 1+ (3-10/OIF) (0-2/OIF); MICROCYTES 1+ (5-10/OIF) (0-5/OIF); PLATELET ESTIMATE DEC (ADEQUATE)
[2016-12-18] MEDS ORDERED: MVI PO (15:20)
== END 2016-12-18 17:35 | disposition home or self-care (01) | DRG 56 ==
LOC: ER 22:53 → CDU1 23:59 → 2SO 12-16 03:24
PROVIDERS: Emergency Medicine; Internal Medicine
DX: G31.2 Degeneration of nervous system due to alcohol (principal); G92 Toxic encephalopathy; D69.6 Thrombocytopenia, unspecified; I50.22 Chronic systolic (congestive) heart failure; I11.0 Hypertensive heart disease with heart failure; E87.1 Hypo-osmolality and hyponatremia; Z99.81 Dependence on supplemental oxygen; F10.288 Alcohol dependence with other alcohol-induced disorder; J44.9 Chronic obstructive pulmonary disease, unspecified; T42.4X5A Adverse effect of benzodiazepines, initial encounter; F19.129 Other psychoactive substance abuse with intoxication, unspecified; G47.33 Obstructive sleep apnea (adult) (pediatric); F41.9 Anxiety disorder, unspecified; E03.9 Hypothyroidism, unspecified; G40.909 Epilepsy, unspecified, not intractable, without status epilepticus; F17.210 Nicotine dependence, cigarettes, uncomplicated; F13.90 Sedative, hypnotic, or anxiolytic use, unspecified, uncomplicated; F32.9 Major depressive disorder, single episode, unspecified; E78.00 Pure hypercholesterolemia, unspecified; Y92.009 Unspecified place in unspecified non-institutional (private) residence as the place of occurrence of the external cause; Z86.010 Personal history of colon polyps; Z86.73 Personal history of transient ischemic attack (TIA), and cerebral infarction without residual deficits; Z98.890 Other specified postprocedural states
CPT/HCPCS: 36600; 70450; 71010; 80048; 80053; 80164; 80305; 80307; 81001; 82140; 82607; 82746; 82805; 83735; 84100; 84443; 84484; 85025; 85610; 85730; 93005; 94640; 94660; 95816; 97161-GP; 99285; A9270-GY; J0360; J3411; J3475